=== PATIENT | female | born 2000 ===

== ENCOUNTER 2023-03-13 18:34 | Emergency (ER) | payer MEDICAID ==
[2023-03-13] MEDS ORDERED: Lidocaine 4% 1 each Patch TOP STA (20:12)
[2023-03-13] MEDS ORDERED: Acetaminophen 325 MG Tab PO ONE (20:13)
== END 2023-03-13 21:27 | disposition home or self-care (01) ==
LOC: MW.ED 18:34
DX: M54.9 Dorsalgia, unspecified (principal)
CPT/HCPCS: 99283; A9270

== ENCOUNTER 2023-09-06 13:20 | Inpatient (IN) | payer MEDICAID, OTHER ==
[2023-09-06] MEDS ORDERED: ePHEDrine 50 MG/ML SDV IVPUSH PRN ×2 (15:52)
[2023-09-06] MEDS ORDERED: Phenylephrine HCl 0.5 MG/5 ML AMP IVPUSH PRN (15:52)
[2023-09-06] MEDS ORDERED: Acetaminophen 325 MG Tab PO PRN (19:41)
[2023-09-06] MEDS ORDERED: Terbutaline 1 MG/ML SDV SUBCUT PRN (19:41)
[2023-09-06] MEDS ORDERED: Misoprostol 25 MCG (1/4 of 100 MCG) Tab VAG PRN (19:41)
[2023-09-06] MEDS: Misoprostol 25 MCG (1/4 of 100 MCG) Tab VAG PRN (20:20)
[2023-09-07] MEDS ORDERED: Nalbuphine 10 MG/0.5 ML Syringe ONE (00:29)
[2023-09-07] MEDS: Nalbuphine 10 MG/0.5 ML Syringe IVPUSH PRN (00:34)
[2023-09-07] MEDS ORDERED: Ondansetron 4 MG Tab PO PRN (01:02)
[2023-09-07] MEDS: Lactated Ringers 1,000 ML IV SCH (03:42)
[2023-09-07] MEDS: Ropivacaine HCl/PF 400 MG in Premix Bag 1 BAG EPIDUR SCH (06:45)
[2023-09-07] MEDS ORDERED: dexmedeTOMIDine HCl 200 MCG/2 ML SDV ONE (06:46)
[2023-09-07] MEDS: Ondansetron 4 MG/2 ML SDV ONE (08:03)
[2023-09-07] MEDS: Oxytocin/0.9 % Sodium Chloride 30 UNIT/500 ML BAG IV SCH (08:03)
[2023-09-07] MEDS ORDERED: Ondansetron 4 MG/2 ML SDV IVPUSH PRN (08:24)
[2023-09-07] MEDS ORDERED: fentaNYL 100 MCG/2 ML SDV ONE (20:11)
[2023-09-07] MEDS ORDERED: Bupivacaine 0.5% 10 ML SDV ONE (20:13)
[2023-09-07] MEDS ORDERED: Lanolin 100% Cream 7 GM Tube TOP PRN (22:08)
[2023-09-07] MEDS ORDERED: Docusate Sodium 100 MG Cap PO PRN (22:08)
[2023-09-07] MEDS: Acetaminophen 500 MG Tab PO PRN (23:58)
[2023-09-08] MEDS: Benzocaine/Menthol 20%-0.5% Spray 78 GM Cannister TOP PRN (00:03)
[2023-09-08] MEDS: Witch Hazel Medicated Pads 40/Jar TOP PRN (00:08)
[2023-09-08 03:27] LABS: BASOPHILS ABSOLUTE AUTO 0.02 K/uL (0.00-0.20); BASOPHILS PERCENT AUTO 0.3 % (0.0-1.0); EOSINOPHILS ABSOLUTE AUTO 0.03 K/uL (0.00-0.45); EOSINOPHILS PERCENT AUTO 0.5 % (0.0-6.0); HEMATOCRIT 31.3 % (37.0-47.0); HEMOGLOBIN 9.7 g/dL (12.0-16.0); IMMATURE GRAN ABSOLUTE AUTO 0.09 K/uL (0.00-0.05); IMMATURE GRAN PERCENT AUTO 1.4 % (0.0-0.4); LYMPHOCYTES ABSOLUTE AUTO 1.26 K/uL (1.00-4.80); LYMPHOCYTES PERCENT AUTO 19.2 % (24.0-44.0); MEAN CORPUSCULAR HEMOGLOBIN 26.2 pg (28.0-32.0); MEAN CORPUSCULAR VOLUME 84.6 fL (83.0-99.0); MEAN PLATELET VOLUME 11.8 fL (9.4-12.3); MONOCYTES ABSOLUTE AUTO 0.48 K/uL (0.00-0.80); MONOCYTES PERCENT AUTO 7.3 % (0.0-8.0); NEUTROPHILS ABSOLUTE AUTO 4.67 K/uL (1.80-7.70); NEUTROPHILS PERCENT AUTO 71.3 % (41.0-71.0); PLATELET COUNT,PLT 186 K/uL (150-400); WHITE BLOOD CELL COUNT,WBC 6.55 K/uL (3.9-11.3)
[2023-09-08] MEDS: Ibuprofen 800 MG Tab PO PRN (04:35)
[2023-09-08 06:51] LABS: HEMATOCRIT 27.3 % (37.0-47.0); HEMOGLOBIN 8.5 g/dL (12.0-16.0)
== END 2023-09-09 11:19 | disposition home or self-care (01) | DRG 807 ==
LOC: MW.OBCHECK 13:20 → MW.OB 13:25 → MW.OBCHECK 18:09 → MW.OB 18:09 → OBSVTOIN 09-07 21:45 → MW.OB 09-08 01:37
PROVIDERS: ADMIT Obstetrics & Gynecology Obstetrics; ATTEND Obstetrics & Gynecology
PROC: 10D07Z6 Extraction of Products of Conception, Vacuum, Via Natural or Artificial Opening (ICD-10-PCS; principal; 2023-09-09)
PROC: 0KQM0ZZ Repair Perineum Muscle, Open Approach (ICD-10-PCS; 2023-09-09)
DX: O48.0 Post-term pregnancy (principal); Z37.0 Single live birth; O70.1 Second degree perineal laceration during delivery; Z3A.41 41 weeks gestation of pregnancy
CPT/HCPCS: 01967; 36415; 51702; 59025; 59409; 85014; 85018; 85025; 86850; 86900; 86901; A9270-GY; J0665; J2300; J2405; J2590; J2795; J3010; J3490; J7120